=== PATIENT | female | born 1995 | race African-American/Black ===

== ENCOUNTER 2017-04-16 17:59 | Emergency (ER) | payer OTHER ==
[~2017-04-16] VITALS: Ht 170.2 cm; Wt 131.5 kg
[~2017-04-16 17:59] MED LIST: IBUPROFEN 600600 M1 PO
[2017-04-16 18:17] VITALS: BP 144/93
[2017-04-16] MEDS ORDERED: IRON325 PO (18:20)
[2017-04-16] MEDS ORDERED: TRINATE TABLET1 TAB PO (18:20)
[2017-04-16] MEDS ORDERED: KEFLEX500 MG PO (18:23)
== END 2017-04-16 18:40 | disposition home or self-care (01) ==
LOC: ER 17:59
DX: O26.892 Other specified pregnancy related conditions, second trimester (principal); L02.415 Cutaneous abscess of right lower limb; Z3A.15 15 weeks gestation of pregnancy

== ENCOUNTER 2018-01-30 11:58 | Emergency (ER) | payer OTHER ==
[~2018-01-30] VITALS: Ht 170.2 cm; Wt 147.0 kg
--- NOTE | ~2018-01-30 | EKG ---
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 01/31/18 1019 1221 1221 García Ball MD, FACC /EPI
[~2018-01-30 11:58] MED LIST changes: +IRON325 PO; +KEFLEX500 MG PO; +TRINATE TABLET1 TAB PO
[2018-01-30] MEDS ORDERED: LISINOPRIL-HCT1 EACH PO (12:16)
[2018-01-30 12:27] LABS: ANION GAP 11 mmol/L (7-16); BUN 9 mg/dL (7-18); CHLORIDE 102 mmol/L (98-107); CO2 24 mmol/L (21-32); CREATININE 0.9 mg/dL (0.6-1.0); GLUCOSE 117 mg/dL (74-106); POTASSIUM 3.7 mmol/L (3.5-5.1); SODIUM 137 mmol/L (136-145)
[2018-01-30 12:29] LABS: ABSOLUTE NEUTROPHILS 2.9 thou/uL (1.4-8.2); HEMATOCRIT 39.3 % (37.0-47.0); HEMOGLOBIN 12.6 gm/dL (12.0-15.0); LYMPHOCYTES 32.5 % (24.0-44.0); MCH 23.8 pg (26.0-34.0); MCHC 32.1 g/dL (28.0-37.0); MCV 74.1 fL (80.0-100.0); MONOCYTES 5.2 % (1.0-8.0); PLATELET COUNT 344 thou/uL (150-400); POLYS 60.3 % (36.0-66.0); RBC 5.31 mil/uL (4.20-5.00); RDW 18.9 % (10.5-14.5); WBC 4.8 thou/uL (4.0-11.0)
[2018-01-30 12:36] LABS: TROPONIN-I < 0.04 ng/mL (<0.06)
[2018-01-30 12:44] LABS: ANISOCYTOSIS 2+; MICROCYTES 2+; PLATELET ESTIMATE NORMAL
[2018-02-20] MEDS ORDERED: HYDROCHLOROTH12.5 M1 PO (01:03)
[2018-02-20] MEDS ORDERED: HYDROXYZINE HCL25 M2 PO (01:30)
== END 2018-01-30 13:45 | disposition home or self-care (01) ==
LOC: ER 11:58
PROVIDERS: Physician Assistant
DX: R00.2 Palpitations (principal); R07.89 Other chest pain

== ENCOUNTER 2018-04-04 21:50 | Emergency (ER) | payer OTHER ==
[~2018-04-04] VITALS: Ht 170.2 cm; Wt 145.2 kg
--- NOTE | ~2018-04-04 | EKG ---
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
[~2018-04-04 21:50] MED LIST changes: +HYDROCHLOROTH12.5 M1 PO; +HYDROXYZINE HCL25 M2 PO; +LISINOPRIL-HCT1 EACH PO
[2018-04-04 22:31] LABS: ABSOLUTE NEUTROPHILS 5.3 thou/uL (1.4-8.2); BASOPHILS 0.7 % (0.0-2.0); EOSINOPHILS 0.8 % (0.0-3.0); HEMATOCRIT 39.3 % (37.0-47.0); HEMOGLOBIN 12.4 gm/dL (12.0-15.0); LYMPHOCYTES 27.4 % (24.0-44.0); MCH 23.7 pg (26.0-34.0); MCHC 31.6 g/dL (28.0-37.0); MCV 75.2 fL (80.0-100.0); MONOCYTES 4.8 % (1.0-8.0); PLATELET COUNT 396 thou/uL (150-400); POLYS 66.3 % (36.0-66.0); RBC 5.22 mil/uL (4.20-5.00); RDW 15.9 % (10.5-14.5); WBC 8.1 thou/uL (4.0-11.0)
[2018-04-04 22:35] LABS: ANION GAP 8 mmol/L (7-16); BUN 11 mg/dL (7-18); CHLORIDE 102 mmol/L (98-107); CO2 28 mmol/L (21-32); GLUCOSE 136 mg/dL (74-106); POTASSIUM 3.7 mmol/L (3.5-5.1); SODIUM 138 mmol/L (136-145)
[2018-04-04 22:44] LABS: TROPONIN-I < 0.04 ng/mL (<0.06)
[2018-04-04 23:40] VITALS: BP 108/59
== END 2018-04-04 23:41 | disposition home or self-care (01) ==
LOC: ER 21:50
PROVIDERS: Emergency Medicine
DX: R07.9 Chest pain, unspecified (principal)

== ENCOUNTER 2019-01-18 15:40 | Emergency (ER) | payer OTHER ==
[~2019-01-18] VITALS: Ht 170.2 cm; Wt 154.2 kg
[2019-01-18 15:57] LABS: URINE BILIRUBIN NEGATIVE (Negative); URINE BLOOD 2+ (Negative); URINE CLARITY CLEAR; URINE COLOR YELLOW; URINE GLUCOSE-RANDOM* NEGATIVE (Negative); URINE KETONES TRACE (Negative); URINE NITRITE-REFLEX NEGATIVE (Negative); URINE PROTEIN (DIPSTICK) TRACE (Negative); URINE SPECIFIC GRAVITY >= 1.030 (1.005-1.035); URINE UROBILINOGEN 0.2 E.U./dl (0.2-1.0)
[2019-01-18 15:59] LABS: URINE LEUKOCYTES-REFLEX 1+ (Negative)
[2019-01-18] MEDS ORDERED: KEFLEX500 M1 PO (16:05)
[2019-01-18] MEDS ORDERED: PHENAZOPYRIDIN200 M2 PO (16:05)
[2019-01-18 16:08] LABS: BACTERIA-REFLEX None Seen /HPF (None Seen); CRYSTALS None Seen /LPF (None Seen); HYALINE CASTS 0-3 Few /LPF (None Seen); MUCUS >6 Heavy strn/LPF (None Seen); SQUAMOUS 0-3 Few /LPF (0-3); URINE RBC 3-10 Few /HPF (0-2); URINE WBC-REFLEX >25 Many /HPF (0-5); WBC CLUMPS Few (None Seen)
[2019-01-18 16:43] VITALS: BP 138/90
== END 2019-01-18 16:15 | disposition home or self-care (01) ==
LOC: ER 15:40
PROVIDERS: Physician Assistant
DX: N39.0 Urinary tract infection, site not specified (principal)

== ENCOUNTER 2019-02-21 21:08 | Emergency (ER) | payer OTHER ==
[~2019-02-21] VITALS: Ht 170.2 cm; Wt 154.2 kg
[~2019-02-21 21:08] MED LIST changes: +KEFLEX500 M1 PO; +PHENAZOPYRIDIN200 M2 PO
[2019-02-21] MEDS ORDERED: MEDROLDOSEPACK PO (21:49)
[2019-02-21] MEDS ORDERED: NAPROSYN500 MG PO (21:49)
[2019-02-21] MEDS ORDERED: AMOXICILLIN 50500 MG PO (21:49)
[2019-02-21 22:23] VITALS: BP 147/85
== END 2019-02-21 22:32 | disposition home or self-care (01) ==
LOC: ER 21:08
DX: J03.90 Acute tonsillitis, unspecified (principal); E66.9 Obesity, unspecified; Z68.43 Body mass index [BMI] 50.0-59.9, adult

== ENCOUNTER 2019-08-31 17:09 | Emergency (ER) | payer OTHER ==
[~2019-08-31] VITALS: Ht 170.2 cm; Wt 158.8 kg
[~2019-08-31 17:09] MED LIST changes: +AMOXICILLIN 50500 MG PO; +MEDROLDOSEPACK PO; +NAPROSYN500 MG PO
[2019-08-31] MEDS ORDERED: CYCLOBENZAPRINE5 MG PO (19:21)
[2019-08-31] MEDS ORDERED: MOBIC15 MG PO (19:21)
[2019-08-31 19:29] VITALS: BP 141/97
== END 2019-08-31 19:38 | disposition home or self-care (01) ==
LOC: ER 17:09
DX: G44.209 Tension-type headache, unspecified, not intractable (principal); I10 Essential (primary) hypertension; E66.9 Obesity, unspecified; Z68.43 Body mass index [BMI] 50.0-59.9, adult

== ENCOUNTER 2019-09-04 20:11 | Emergency (ER) | payer OTHER ==
[~2019-09-04] VITALS: Ht 170.2 cm; Wt 147.0 kg
[~2019-09-04 20:11] MED LIST changes: +CYCLOBENZAPRINE5 MG PO; +MOBIC15 MG PO
[2019-09-04 21:03] LABS: URINE BILIRUBIN NEGATIVE (Negative); URINE BLOOD TRACE (Negative); URINE CLARITY SL CLOUDY; URINE COLOR YELLOW; URINE GLUCOSE-RANDOM* NEGATIVE (Negative); URINE KETONES NEGATIVE (Negative); URINE LEUKOCYTES-REFLEX 3+ (Negative); URINE NITRITE-REFLEX NEGATIVE (Negative); URINE PROTEIN (DIPSTICK) NEGATIVE (Negative); URINE UROBILINOGEN 0.2 E.U./dl (0.2-1.0)
[2019-09-04 21:24] LABS: BACTERIA-REFLEX 1-9 Few /HPF (None Seen); CASTS None Seen /LPF (None Seen); CRYSTALS None Seen /LPF (None Seen); SQUAMOUS >10 Many /LPF (0-3); URINE RBC 0-2 Rare /HPF (0-2)
[2019-09-04] MEDS ORDERED: KEFLEX500 M1 PO (21:37)
[2019-09-04 21:41] VITALS: BP 130/82
== END 2019-09-04 21:40 | disposition home or self-care (01) ==
LOC: ER 20:11
PROVIDERS: Emergency Medicine
DX: N39.0 Urinary tract infection, site not specified (principal); I10 Essential (primary) hypertension; E66.9 Obesity, unspecified; Z68.43 Body mass index [BMI] 50.0-59.9, adult

== ENCOUNTER 2019-10-17 19:05 | Emergency (ER) | payer OTHER ==
[~2019-10-17] VITALS: Ht 170.2 cm; Wt 151.5 kg
[2019-10-17 20:36] LABS: URINE BILIRUBIN NEGATIVE (Negative); URINE BLOOD NEGATIVE (Negative); URINE CLARITY SL CLOUDY; URINE COLOR YELLOW; URINE GLUCOSE-RANDOM* NEGATIVE (Negative); URINE KETONES NEGATIVE (Negative); URINE LEUKOCYTES-REFLEX NEGATIVE (Negative); URINE NITRITE-REFLEX NEGATIVE (Negative); URINE PROTEIN (DIPSTICK) NEGATIVE (Negative); URINE SPECIFIC GRAVITY >= 1.030 (1.005-1.035); URINE UROBILINOGEN 0.2 E.U./dl (0.2-1.0)
[2019-10-17 22:30] LABS: HEMATOCRIT 36.1 % (37.0-47.0); HEMOGLOBIN 11.5 gm/dL (12.0-15.0); MCH 25.7 pg (26.0-34.0); MCHC 31.8 g/dL (28.0-37.0); MCV 80.8 fL (80.0-100.0); RBC 4.46 mil/uL (4.20-5.00); RDW 15.4 % (10.5-14.5); WBC 6.9 thou/uL (4.0-11.0)
[2019-10-17 22:41] LABS: CALCIUM 9.8 mg/dL (8.5-10.1); CREATININE 0.8 mg/dL (0.6-1.0); POTASSIUM 3.4 mmol/L (3.5-5.1)
[2019-10-17] MEDS ORDERED: MOBIC15 MG PO (23:00)
[2019-10-17 23:19] VITALS: BP 132/71
== END 2019-10-17 23:20 | disposition home or self-care (01) ==
LOC: ER 19:05
PROVIDERS: Emergency Medicine
DX: R10.31 Right lower quadrant pain (principal); E66.9 Obesity, unspecified; I10 Essential (primary) hypertension; Z79.899 Other long term (current) drug therapy

== ENCOUNTER 2020-01-29 10:49 | Emergency (ER) | payer OTHER ==
[~2020-01-29] VITALS: Ht 172.7 cm; Wt 117.9 kg
[2020-01-29 10:50] VITALS: BP 141/77
[2020-01-29] MEDS ORDERED: HYDROCHLOROTH12.5 M2 PO (11:10)
[2020-01-29] MEDS ORDERED: NAPROSYN500 MG PO (11:26)
[2020-01-29] MEDS ORDERED: AMOXICILLIN 50500 MG PO (11:26)
[2020-01-29] MEDS ORDERED: MEDROLDOSEPACK PO (11:26)
== END 2020-01-29 12:15 | disposition home or self-care (01) ==
LOC: ER 10:49
DX: J03.90 Acute tonsillitis, unspecified (principal); I10 Essential (primary) hypertension; E66.9 Obesity, unspecified; Z79.899 Other long term (current) drug therapy

== ENCOUNTER 2020-01-29 18:57 | Emergency (ER) | payer OTHER ==
[~2020-01-29] VITALS: Ht 170.2 cm; Wt 147.0 kg
[~2020-01-29 18:57] MED LIST changes: +HYDROCHLOROTH12.5 M2 PO
[2020-01-29 21:00] VITALS: BP 132/84
== END 2020-01-29 21:30 | disposition home or self-care (01) ==
LOC: ER 18:57
DX: J03.90 Acute tonsillitis, unspecified (principal); M79.10 Myalgia, unspecified site; M79.604 Pain in right leg; M79.605 Pain in left leg; R50.9 Fever, unspecified; I10 Essential (primary) hypertension; E66.9 Obesity, unspecified; Z79.899 Other long term (current) drug therapy

== ENCOUNTER 2021-05-11 07:38 | Emergency (ER) | payer OTHER ==
[~2021-05-11] VITALS: Ht 170.2 cm; Wt 135.2 kg
[2021-05-11] MEDS ORDERED: FLEXERIL PO (08:09)
[2021-05-11 08:13] VITALS: BP 139/88
== END 2021-05-11 08:13 | disposition home or self-care (01) ==
LOC: ER 07:38
DX: M54.2 Cervicalgia (principal); M25.511 Pain in right shoulder; E66.9 Obesity, unspecified; I10 Essential (primary) hypertension